=== PATIENT | female | born 1985 | race American Indian/Alaskan Native ===

== ENCOUNTER 2017-03-25 21:50 | Emergency (ER) | payer BC, OTHER ==
[2017-03-25 22:00] VITALS: BP 126/86; PULSE 80; RESP 20; TEMP 98.3; O2SAT 98
--- NOTE | 2017-03-25 22:59 | C.PDOC ---
History Of Present Illness 32 yo female come in for evaluation of left sided lower back pain radiating down to Left buttock and leg gradually worse for past few days. Pt admits, " taking care of little baby now, breast feeding". Pt admits, similar sx during the . Otherwise, pt denies high fever, chills, recent illness, sore throat, abd. pain, N/V/D, UTI sx, hematuria, incontinence, saddle anesthesia, denies weakness, sensory or vascular deficient to B/L LEs. Ambulate to Ed for evaluation, appears in pain. Time Seen by Provider: 03/25/17 22:39 Chief Complaint (Nursing): Back Pain History Per: Patient Onset/Duration Of Symptoms: Gradual Past Medical History Reviewed: Historical Data, Nursing Documentation, Vital Signs Vital Signs: Last Vital Signs Temp 98.3 F 03/25/17 21:56 Pulse 80 03/25/17 21:56 Resp 20 03/25/17 21:56 BP 126/86 03/25/17 21:56 Pulse Ox 98 03/25/17 23:40 - Medical History PMH: Chronic Pain (back pain) Other PMH: Morbid obesity Surgical History: Family History: States: No Known Family Hx - Social History Hx Tobacco Use: No Hx Alcohol Use: No Hx Substance Use: No - Immunization History Hx Tetanus Toxoid Vaccination: Yes Hx Influenza Vaccination: No Hx Pneumococcal Vaccination: No Review Of Systems Except As Marked, All Systems Reviewed And Found Negative. Constitutional: Negative for: Fever, Chills ENT: Negative for: Throat Pain Cardiovascular: Negative for: Chest Pain Respiratory: Negative for: Cough, Shortness of Breath, Wheezing Gastrointestinal: Negative for: Nausea, Vomiting, Abdominal Pain, Diarrhea Genitourinary: Negative for: Dysuria, Frequency, Incontinence, Hematuria, Vaginal Discharge, Vaginal Bleeding Musculoskeletal: Positive for: Back Pain. Negative for: Neck Pain Skin: Negative for: Rash Neurological: Negative for: Weakness, Numbness Physical Exam - Physical Exam Appears: Well, Non-toxic, No Acute Distress Skin: Normal Color, Warm, Dry Eye(s): bilateral: PERRL Nose: No Flaring, No Discharge Oral Mucosa: Moist Throat: No Erythema Neck: Trachea Midline, Supple Gastrointestinal/Abdominal: Soft, No Tenderness, No Organomegaly, No Distention , No Guarding Back: No CVA Tenderness, No Vertebral Tenderness, Muscle Spasm (Left lumbar paraspinal), Paraspinal Tenderness (Left sided flank tenderness extends down to left lumbar paraspinal tenderness,Left gluteal tenderness. No midline tenderness , no palpable deformity, no skin changes.) Extremity: Normal ROM (B/L LEs), No Tenderness, No Pedal Edema, No Deformity, No Swelling Neurological/Psych: Oriented x3, Normal Speech, Normal Motor, Normal Sensation, Normal Reflexes ED Course And Treatment O2 Sat by Pulse Oximetry: 98 Progress Note: On re-evaluation, pt is awake, not in any apparent distress. Afebrile hemodynamicaly stable. Non-toxic. Tolerate Po well in ED. PulseOx 99% RA. ENT: no acute findings. Neck: Supple, (-) meningeal sign. ABd: benign. Back : (-) CVA tenderness. Neuorlogicaly intact. UA results review and c/w UTI. preg (-). Pt has clinical findings c/w left lumbar radiculopathy, UTI. parent advised on course of ds. ref. to f/u with PMD in 2-3 days for re-evaluation. Return to ED if any worsening for new changes. Disposition Counseled Patient/Family Regarding: Studies Performed, Diagnosis, Need For Followup, Rx Given - Disposition Referrals: [facility] [Outside] Disposition: HOME/ ROUTINE Disposition Time: 22:59 Condition: STABLE Additional Instructions: LIGHT DUTY TO LOWER BACK, AVOID LEANING FORWARDS, HEAVY LIFTING, ETC. TAKE MEDICATION PRESCRIBED FOR PAIN NEED FOLLOW UP WITH PMD, PM IN 2-3 DAYS FOR RE-EVALUATION. RETURN TO ED IF ANY WORSENING OR NEW CHANGES. Prescriptions: Ibuprofen [Motrin Tab] 800 mg PO TID #20 tab Methocarbamol [Robaxin] 500 mg PO TID #14 tab Nitrofurantoin Macrocrystals [Macrobid] 1 cap PO BID #14 cap Instructions: Urinary Tract Infection in Women (ED), Lumbar Radiculopathy (ED) Forms: [employer] ([place]) - Clinical Impression Clinical Impression: Lumbar radiculopathy, UTI (urinary tract infection)
[2017-03-25 23:16] LABS: RBC URINE 6 /hpf (0-3); TRANSITIONAL EPITHIAL 1 /hpf (0-3); URINE BACTERIA FEW (<OCC); URINE BILIRUBIN NEGATIVE (NEGATIVE); URINE BLOOD 2+ (NEGATIVE); URINE COLOR Yellow (YELLOW); URINE GLUCOSE (UA) NORMAL (Normal); URINE KETONE NEGATIVE (NEGATIVE); URINE LEUKOCYTE ESTERASE 3+ Leu/uL (Negative); URINE PROTEIN NEGATIVE (NEGATIVE); URINE UROBILINOGEN NORMAL mg/dL (0.2-1.0); WBC URINE 36 /hpf (0-5)
== END 2017-03-25 23:57 | disposition home or self-care (01) ==
LOC: C.ER 21:50
DX: M54.16 Radiculopathy, lumbar region (principal); N39.0 Urinary tract infection, site not specified